=== PATIENT | female | born 1985 | race Hispanic/Latino ===

== ENCOUNTER 2017-07-11 22:40 | Outpatient (CLI) | payer MEDICAID ==
[2017-07-11] MEDS ORDERED: LACTATED RINGERS 1,000 ML IV ONE (22:48)
[2017-07-11 23:00] VITALS: BP 113/75
[2017-07-11 23:43] LABS: Bilirubin,Urine NEG (Negative); Blood,Urine NEG (Negative); Ketones,Urine NEG (Negative); Leukocyte Esterase,Urine NEG (Negative); Nitrite,Urine NEG (Negative); Protein,Urine <15 mg/dL mg/dL (Negative); Urobilinogen,Urine < 2.0 mg/dL (<2.0)
== END 2017-07-12 00:25 | disposition home or self-care (01) ==
LOC: TRG 22:40
PROVIDERS: ATTEND Obstetrics & Gynecology
DX: O47.02 False labor before 37 completed weeks of gestation, second trimester (principal); Z3A.25 25 weeks gestation of pregnancy
CPT/HCPCS: 59025; 81001

== ENCOUNTER 2017-08-19 13:48 | Outpatient (CLI) | payer MEDICAID ==
[2017-08-19 14:28] VITALS: BP 142/77
[2017-08-19] MEDS ORDERED: LACTATED RINGERS 500 ML IV ONE (14:55)
--- NOTE | 2017-08-20 07:35 | Ultrasound Report ---
BIOPHYSICAL PROFILE: 2 - breathing movements 2 - movements 2 - posture and tone 2 - Qualitative amniotic fluid volume 8 - TOTAL SCORE OF POSSIBLE 8 Heart Rate (bpm) 158
--- NOTE | 2017-08-20 14:27 | Ultrasound Report ---
Limited OB ultrasound. Findings: A single intrauterine is identified in transverse position with the head on the maternal left side. The MIREILLE is normal at 14.4 cm. The heart rate is 158 beats per minute.
== END 2017-08-19 16:20 | disposition home or self-care (01) ==
LOC: TRG 13:48
PROVIDERS: ATTEND Obstetrics & Gynecology
DX: O32.2XX0 Maternal care for transverse and oblique lie, not applicable or unspecified (principal); O47.03 False labor before 37 completed weeks of gestation, third trimester; Z3A.30 30 weeks gestation of pregnancy
CPT/HCPCS: 59025; 76815; 76819

== ENCOUNTER 2017-09-02 23:02 | Outpatient (CLI) | payer MEDICAID ==
[2017-09-02] MEDS ORDERED: LACTATED RINGERS 500 ML IV ONE (23:05)
[2017-09-02 23:19] VITALS: BP 120/73
[2017-09-02 23:43] LABS: Bilirubin,Urine NEG (Negative); Blood,Urine NEG (Negative); Ketones,Urine 20 mg/dL (Negative); Leukocyte Esterase,Urine TR (Negative); Mucus,Urine FEW /HPF; Nitrite,Urine NEG (Negative); Protein,Urine <15 mg/dL mg/dL (Negative)
== END 2017-09-03 00:42 | disposition home or self-care (01) ==
LOC: TRG 23:02
PROVIDERS: ATTEND Obstetrics & Gynecology
DX: O62.9 Abnormality of forces of labor, unspecified (principal); O26.893 Other specified pregnancy related conditions, third trimester; R25.2 Cramp and spasm; Z3A.32 32 weeks gestation of pregnancy
CPT/HCPCS: 81001

== ENCOUNTER 2017-10-02 21:46 | Outpatient (CLI) | payer MEDICAID ==
[2017-10-02] MEDS ORDERED: LACTATED RINGERS 500 ML IV ONE (22:13)
[2017-10-03 00:08] VITALS: BP 112/73
--- NOTE | 2017-10-03 01:17 | Ultrasound Report ---
FINAL REPORT EXAM: US OB LIMITED HISTORY: [place] TECHNIQUE: Real-time sonography was performed of the gravid uterus for measurement of amniotic fluid index and images are submitted for interpretation. PRIORS: None. FINDINGS: Detailed anatomic survey was not performed. There is a single fetus in the uterus in a cephalic presentation. The amniotic fluid index is normal at 10.3 cm. The heart is beating at a rate of 166 beats per minute. IMPRESSION: Amniotic fluid index within normal limits at 10.3 cm.
== END 2017-10-03 00:44 | disposition home or self-care (01) ==
LOC: TRG 21:46
PROVIDERS: ATTEND Obstetrics & Gynecology
DX: O62.9 Abnormality of forces of labor, unspecified (principal); O47.1 False labor at or after 37 completed weeks of gestation; Z3A.37 37 weeks gestation of pregnancy
CPT/HCPCS: 76815